=== PATIENT | female | born 1930 ===

== ENCOUNTER 2018-05-12 13:04 | Outpatient (CLI) | payer OTHER | END 2018-05-12 13:05 | disposition home or self-care (01) | LOC: C.MAMMO 13:05 ==

== ENCOUNTER 2018-08-09 09:58 | Outpatient (CLI) | payer OTHER | END 2018-08-09 09:59 | disposition home or self-care (01) | LOC: C.SPRAD 09:58 ==

== ENCOUNTER 2018-09-12 15:30 | Observation (INO) | payer MEDICAID, OTHER ==
--- NOTE | 2018-09-12 15:59 | C.PDOC ---
History Of Present Illness 88 year old female with PMHx of CHF, hypertension, anemia, and vulvar cancer sent to ED by for evaluation of elevated potassium at 6.9 as well as BUN and creatine of 53 and 1.5, respectively. Patient denies any complaints. She notes she is making good urine. She denies chest pain, SOB, abdominal pain, urinary complaints, vaginal discharge, fall, or trauma. Time Seen by Provider: 09/12/18 15:58 Chief Complaint (Nursing): Abnormal Labs History Per: Patient History/Exam Limitations: no limitations Onset/Duration Of Symptoms: Hrs Current Symptoms Are (Timing): Still Present Past Medical History Reviewed: Historical Data, Nursing Documentation, Vital Signs Vital Signs: Last Vital Signs Temp 98.6 F 09/12/18 15:33 Pulse 80 09/12/18 15:33 Resp 18 09/12/18 15:33 BP 146/67 09/12/18 15:33 Pulse Ox 99 09/12/18 15:33 Primary Care Provider: Dniora Jennings - Medical History PMH: Anemia, CHF, HTN Other PMH: Vulvar cancer Surgical History: No Surg Hx Family History: States: Unknown Family Hx - Social History Hx Alcohol Use: No Hx Substance Use: No - Immunization History Hx Tetanus Toxoid Vaccination: No Hx Influenza Vaccination: No Hx Pneumococcal Vaccination: No Review Of Systems Constitutional: Negative for: Fever, Chills, Sweats, Weakness, Malaise Eyes: Negative for: Pain, Vision Change, Conjunctivae Inflammation ENT: Negative for: Ear Pain, Ear Discharge, Nose Pain, Nose Congestion, Mouth Pain, Mouth Swelling Cardiovascular: Negative for: Chest Pain Respiratory: Negative for: Cough, Shortness of Breath, Sputum Gastrointestinal: Negative for: Nausea, Vomiting, Abdominal Pain, Constipation, Melena, Hematochezia, Hematemesis Genitourinary: Negative for: Dysuria, Frequency, Hematuria, Vaginal Discharge Neurological: Negative for: Weakness, Numbness Physical Exam - Physical Exam Appears: Well, Non-toxic, No Acute Distress Skin: Normal Color, Warm, Dry Head: Atraumatic, Normacephalic Eye(s): bilateral: Normal Inspection, PERRL, EOMI Ear(s): Bilateral: Normal Nose: Normal Oral Mucosa: Moist Throat: Normal, No Erythema, No Exudate, No Drooling Neck: Normal ROM, Trachea Midline, No Midline Cervical Tenderness, Supple, No Other (meningeal signs- negative kernig's and brudzinskis) Chest: Symmetrical, No Deformity, No Tenderness Cardiovascular: Rhythm Regular, No Friction Rub Respiratory: No Rales, No Rhonchi, No Wheezing Gastrointestinal/Abdominal: Normal Exam, Soft, No Tenderness, No Distention Back: Normal Inspection, No CVA Tenderness Extremity: Capillary Refill (<2 seconds), No Swelling Extremity: Bilateral: Atraumatic, Normal Color And Temperature, Normal ROM Pulses: Left Dorsalis Pedis: Normal, Right Dorsalis Pedis: Normal Neurological/Psych: Oriented x3, Normal Speech, Normal Cognition Gait: Steady ED Course And Treatment - Laboratory Results Result Diagrams: 09/13/18 06:32 09/13/18 06:32 O2 Sat by Pulse Oximetry: 99 (in RA) Pulse Ox Interpretation: Normal Medical Decision Making Medical Decision Making: Impression: 88 year old female with PMHx of CHF, hypertension, anemia, and vulvar cancer sent to ED by for evaluation of elevated potassium at 6.9 as well as BUN and creatine of 53 and 1.5, respectively. Initial Plan: VBG EKG CMP Magnesium CBC UA Albuterol INH Dextrose IV Insulin IVP EKG:NSR 70 bpm. No STEMI. 1734 K5.8, cocktail ordered. NO EKG Changes for hyperkalemia pt in nad, denies complaints appreciate consult w/ DR. Hennessy: to admit to her service Disposition - Disposition Disposition: HOSPITALIZED Disposition Time: 17:35 Condition: STABLE - Clinical Impression Clinical Impression: Hyperkalemia - Scribe Statement The provider has reviewed the documentation as recorded by the Scribe (Giuliana Montez) All medical record entries made by the Scribe were at my direction and personally dictated by me. I have reviewed the chart and agree that the record accurately reflects my personal performance of the history, physical exam, medical decision making, and the department course for this patient. I have also personally directed, reviewed, and agree with the discharge instructions and disposition.
[2018-09-12 16:30] LABS: BASO % 0.9 % (0.0-2.0); EOS # 0.1 K/uL (0.0-0.7); EOS % 2.1 % (0.0-4.0); HEMOGLOBIN 9.9 g/dL (11.0-16.0); LYMPH # 0.7 K/uL (1.0-4.3); LYMPH % 14.9 % (20.0-40.0); MEAN CELL VOLUME 88.1 fL (81.0-99.0); MEAN CORPUSCULAR HEMOGLOBIN 29.7 pg (27.0-31.0); MEAN CORPUSCULAR HGB CONC 33.7 g/dL (33.0-37.0); MEAN PLATELET VOLUME 8.1 fL (7.2-11.7); MONO # 0.3 K/uL (0.0-0.8); MONO % 7.1 % (0.0-10.0); NEUT # 3.4 K/uL (1.8-7.0); NRBC % 0.1 % (0.0-2.0); RBC 3.34 Mil/uL (3.80-5.20); RED CELL DISTRIBUTION WIDTH 13.1 % (11.5-14.5); WHITE BLOOD COUNT 4.5 K/uL (4.8-10.8)
[2018-09-12 16:36] LABS: VENOUS BLOOD GAS BASE EXCESS -4.5 mmol/L (0.0-2.0); VENOUS BLOOD GAS PCO2 40 mmHg (40-60); VENOUS BLOOD GAS PO2 24 mm/Hg (30-55); VENOUS BLOOD PH 7.33 (7.32-7.43)
[2018-09-12 16:45] LABS: ALB/GLOB RATIO 1.6 (1.0-2.1); ALBUMIN 4.1 g/dL (3.5-5.0); CALCIUM 9.5 mg/dl (8.6-10.4)
[2018-09-12] MEDS ORDERED: Dextrose 50% SYRINGE Inj (50 ml) IV STA (16:54)
[2018-09-12] MEDS ORDERED: (Novolin R) Insulin Human Regular 100 units/ml vial IVP ONE (16:58)
[2018-09-12] MEDS ORDERED: Albuterol 0.083% Inhal Sol (2.5 mg/3 mL) UD INH STA (17:00)
[2018-09-12] MEDS ORDERED: Dextrose 50% SYRINGE Inj (50 ml) ONE (17:37)
[2018-09-12] MEDS ORDERED: (Novolin R) Insulin Human Regular 100 units/ml vial ONE (17:37)
[2018-09-12] MEDS ORDERED: Albuterol 0.083% Inhal Sol (2.5 mg/3 mL) UD ONE (17:47)
[2018-09-12 18:22] LABS: SQUAMOUS EPITHIAL 7 /hpf (0-5); URINE BACTERIA MOD (<OCC); URINE BILIRUBIN NEGATIVE (NEGATIVE); URINE BLOOD NEGATIVE (NEGATIVE); URINE CLARITY Hazy (Clear); URINE COLOR Yellow (YELLOW); URINE GLUCOSE (UA) NORMAL (Normal); URINE LEUKOCYTE ESTERASE NEG Leu/uL (Negative); URINE PROTEIN NEGATIVE (NEGATIVE); URINE UROBILINOGEN NORMAL mg/dL (0.2-1.0)
--- NOTE | 2018-09-12 18:59 | CP.PCM.HP ---
History of Present Illness - History of Present Illness History of Present Illness: Patient is an 88 year old female with a past medical history of HTN, CHF, vuvlar cancer (treated), lymphangitis, osteoporosis, who was sent to the hospital by PMD for hyperkalemia. The patient went for bloodwork at [facility] at [facility] this morning and was found to have a potassium of 6.6. She was called and told to come to the ER. She currently has no complaints and feels well. She has had elevated potassium in the past, was taking spironolactone at that time and was told to discontinue it (06/2018). She has been avoiding foods high in potassium as well. She currently denies chest pain, palpitations, dyspnea, cough, abdominal pain, nausea, vomiting, dizziness, syncope/falls, dysuria, hematuria, headaches. PMD: Dr. Jennings PMHx: HTN, CHF, vuvlar cancer (treated), lymphangitis, osteoporosis SurgHx: Hysterectomy (uterine prolapse in ); left wrist pain FamHx: Father-CKD, Mother- [place] SocHx: former smoker (quit 2015, [id number]); denies alcohol and drug use; lives with daughter, Iris Allergies: NKDA Medications: Alendronate 70mg Q7days, Calcium, Lisinopril 5mg PO daily, Lasix 20mg PO Q2days, Pentoxifylline 400mg PO BID Present on Admission - Present on Admission Any Indicators Present on Admission: No Review of Systems - Constitutional Constitutional: absent: Fever, Frequent Falls, Headache, Weakness - EENT Eyes: absent: Change in Vision Ears: absent: Dizziness - Cardiovascular Cardiovascular: Leg Edema (chronic lymphedema of left LE). absent: Chest Pain, Dyspnea, Irregular Heart Rhythm, Lightheadedness, Palpitations, Rapid Heart Rate - Respiratory Respiratory: absent: Cough, Dyspnea - Gastrointestinal Gastrointestinal: absent: Abdominal Pain, Diarrhea, Nausea, Vomiting - Genitourinary Genitourinary: Nocturia. absent: Change in Urinary Stream, Difficulty Urinating, Dysuria, Hematuria, Urinary Hesitance - Neurological Neurological: absent: Disequilibrium, Dizziness, Frequent Falls, Headaches, Weakness - Endocrine Endocrine: absent: Palpitations Past Patient History - Infectious Disease Hx of Infectious Diseases: None - Past Social History Smoking Status: Former Smoker - CARDIAC Hx Congestive Heart Failure: Yes Hx Hypertension: Yes - HEMATOLOGICAL/ONCOLOGICAL Hx Anemia: Yes - GENITOURINARY/GYNECOLOGICAL Hx Genitourinary Disorders: Yes Other/Comment: UTERINE PROLAPSE - PSYCHIATRIC Hx Substance Use: No - SURGICAL HISTORY Hx Surgeries: Yes Other/Comment: VULVA CARCINOMA REMOVAL. UTERINE MESH - ANESTHESIA Hx Anesthesia: Yes Hx Anesthesia Reactions: No Meds Allergies/Adverse Reactions: Allergies Allergy/AdvReac Type Severity Reaction Status Date / Time aloe vera Allergy Verified 03/17/16 10:35 Physical Exam - Constitutional Appears: No Acute Distress - Head Exam Head Exam: ATRAUMATIC, NORMAL INSPECTION - Eye Exam Eye Exam: EOMI, Normal appearance - ENT Exam ENT Exam: Mucous Membranes Dry - Respiratory Exam Respiratory Exam: Clear to Auscultation Bilateral, NORMAL BREATHING PATTERN. absent: Rales, Rhonchi, Wheezes, Respiratory Distress - Cardiovascular Exam Cardiovascular Exam: REGULAR RHYTHM, +S1, +S2, Systolic Murmur - GI/Abdominal Exam GI & Abdominal Exam: Normal Bowel Sounds, Soft. absent: Distended, Firm, Tenderness - Extremities Exam Extremities exam: Positive for: pedal pulses present. Negative for: normal inspection (Left LE-chronic lympedema), tenderness - Neurological Exam Neurological exam: Alert, Oriented x3 - Psychiatric Exam Psychiatric exam: Normal Affect, Normal Mood - Skin Skin Exam: Dry, Intact, Normal Color, Warm Results - Vital Signs Recent Vital Signs: Last Vital Signs Temp 98.6 F 09/12/18 15:33 Pulse 85 09/12/18 18:37 Resp 21 09/12/18 18:37 BP 119/50 L 09/12/18 18:37 Pulse Ox 100 09/12/18 18:37 - Labs Result Diagrams: 09/12/18 16:26 09/12/18 16:26 Labs: Laboratory Results - last 24 hr 09/12/18 09/12/18 09/12/18 16:26 16:26 16:31 WBC 4.5 L RBC 3.34 L Hgb 9.9 L Hct 29.5 L MCV 88.1 MCH 29.7 MCHC 33.7 RDW 13.1 Plt Count 175 MPV 8.1 Neut % (Auto) 75.0 Lymph % (Auto) 14.9 L [place] % (Auto) 7.1 Eos % (Auto) 2.1 Baso % (Auto) 0.9 Neut # (Auto) 3.4 Lymph # (Auto) 0.7 L [place] # (Auto) 0.3 Eos # (Auto) 0.1 Baso # (Auto) 0.0 pO2 24 L VBG pH 7.33 VBG pCO2 40 VBG HCO3 19.8 VBG Total CO2 22.3 VBG O2 Sat (Calc) 46.8 VBG Base Excess -4.5 L VBG Potassium 5.5 H Glucose 83 Lactate 1.5 Sodium 140 140.0 Potassium 5.8 H Chloride 109 H 111.0 H Carbon Dioxide 20 L Anion Gap 16 BUN 51 H Creatinine 1.6 H Est GFR ( Amer) 37 Est GFR (Non-Af Amer) 30 Random Glucose 82 Calcium 9.5 Magnesium 2.2 Total Bilirubin 0.2 AST 18 ALT 16 Alkaline Phosphatase 45 Total Protein 6.7 Albumin 4.1 Globulin 2.6 Albumin/Globulin Ratio 1.6 Venous Blood Potassium 5.5 H Urine Color Urine Clarity Urine pH Ur Specific [place] Urine Protein Urine Glucose (UA) Urine Ketones Urine Blood Urine Nitrate Urine Bilirubin Urine Urobilinogen Ur Leukocyte Esterase Urine WBC (Auto) Urine RBC (Auto) Ur Squamous Epith Cells Urine Bacteria 09/12/18 18:04 WBC RBC Hgb Hct MCV MCH MCHC RDW Plt Count MPV Neut % (Auto) Lymph % (Auto) [place] % (Auto) Eos % (Auto) Baso % (Auto) Neut # (Auto) Lymph # (Auto) [place] # (Auto) Eos # (Auto) Baso # (Auto) pO2 VBG pH VBG pCO2 VBG HCO3 VBG Total CO2 VBG O2 Sat (Calc) VBG Base Excess VBG Potassium Glucose Lactate Sodium Potassium Chloride Carbon Dioxide Anion Gap BUN Creatinine Est GFR ( Amer) Est GFR (Non-Af Amer) Random Glucose Calcium Magnesium Total Bilirubin AST ALT Alkaline Phosphatase Total Protein Albumin Globulin Albumin/Globulin Ratio Venous Blood Potassium Urine Color Yellow Urine Clarity Hazy Urine pH 5.0 Ur Specific [place] 1.012 Urine Protein Negative Urine Glucose (UA) Normal Urine Ketones Negative Urine Blood Negative Urine Nitrate Positive H Urine Bilirubin Negative Urine Urobilinogen Normal Ur Leukocyte Esterase Neg Urine WBC (Auto) 4 Urine RBC (Auto) < 1 Ur Squamous Epith Cells 7 H Urine Bacteria Mod H Assessment & Plan - Assessment and Plan (Free Text) Plan: Patient is an 88 year old female with a past medical history of HTN, CHF, vuvlar cancer (treated), lymphangitis, osteoporosis, who was sent to the hospital by PMD for hyperkalemia. Hyperkalemia - Patient currently asymptomatic - At admission, K+ 5.8; patient had blood drawn in [facility] ([facility]) this morning and K+ was 6.6) - In the ER: was given Duonebs, 8 units of insulin and D50. - EKG: NSR@@70bpm; LBBB - Repeat BMP@9pm: f/u - Discontinued home medications Lisinopril 5mg PO daily and Lasix 20mg Q2days - Nephrology, Dr. Gamble, consulted; help appreciated Acute on Chronic Kidney Disease - At admission, BUN/Cr: 51/1.6; GFR30; Cr in 07/2018 was 1.1, but has been previously elevated over the past yr. - Discontinued home medications Lisinopril 5mg PO daily and Lasix 20mg Q2days - Nephrology consulted, Dr. Gamble; help appreciated - 24hr urine collection order: f/u - Continue to monitor History of Chronic Congestive Heart Failure - Echo (03/09/18): EF 50-55%, LVH, grade-I abnormal relaxation pattern; severely dilated LA, possible pfo; mild AR, mild MR, mild-mod TR, no pulm HTN, no pericardial effusion - Was previously taking spironolactone- discontinued in June 2018 due to hyperkalemia - Home medications: Lasix 20mg PO Q2days, Lisinopril 5mg PO daily History of Hypertension - Home medications Lisinopril 5mg PO daily and Lasix 20mg PO Q2days discontinued - Currently normotensive. Will continue to monitor. Can consider low dose Norvasc if elevated blood pressure. History of PAD - Continue home medication: Pentoxifylline 400mg PO BID Prophylaxis - DVT: no SCDs due to LE lymphedema - GI: not indicated at this time Case discussed with Dr. Misbah Dominique, PGY2
[2018-09-12] MEDS: Sodium Chloride 0.9% 1,000 ML IV SCH (23:10)
[2018-09-12 23:18] LABS: CALCIUM 9.5 mg/dl (8.6-10.4)
[2018-09-13 02:55] VITALS: RESP 20
[2018-09-13 06:52] LABS: BASO % 0.6 % (0.0-2.0); EOS # 0.1 K/uL (0.0-0.7); HEMOGLOBIN 9.9 g/dL (11.0-16.0); LYMPH # 0.6 K/uL (1.0-4.3); LYMPH % 13.8 % (20.0-40.0); MEAN CELL VOLUME 88.6 fL (81.0-99.0); MEAN CORPUSCULAR HEMOGLOBIN 29.9 pg (27.0-31.0); MEAN CORPUSCULAR HGB CONC 33.7 g/dL (33.0-37.0); MEAN PLATELET VOLUME 8.8 fL (7.2-11.7); MONO # 0.3 K/uL (0.0-0.8); MONO % 6.5 % (0.0-10.0); NEUT # 3.1 K/uL (1.8-7.0); NEUT % 76.1 % (50.0-75.0); RBC 3.31 Mil/uL (3.80-5.20); RED CELL DISTRIBUTION WIDTH 13.2 % (11.5-14.5); WHITE BLOOD COUNT 4.1 K/uL (4.8-10.8)
[2018-09-13 06:53] LABS: ALB/GLOB RATIO 1.5 (1.0-2.1); ALBUMIN 3.9 g/dL (3.5-5.0); CALCIUM 9.5 mg/dl (8.6-10.4)
--- NOTE | 2018-09-13 07:40 | CP.PCM.CON ---
History of Present Illness - History of Present Illness History of Present Illness: 88 year old female with a past medical history of HTN, CHF, vuvlar cancer (treated), lymphangitis, osteoporosis, who was sent to the hospital by PMD for hyperkalemia. The patient went for bloodwork at [facility] at [facility] this morning and was found to have a potassium of 6.6. She was called and told to come to the ER. She currently has no complaints and feels well. She has had elevated potassium in the past, was taking spironolactone at that time and was told to discontinue it (06/2018). She has been avoiding foods high in potassium as well. She currently denies chest pain, palpitations, dyspnea, cough, abdominal pain, nausea, vomiting, dizziness, syncope/falls, dysuria, hematuria, headaches. Patient seen in room with daughter at bedside. No history of renal disease reported. NO history of bladder dysfunction, henaturia, proteinuria, nephrolithiasis, or use of nsaids. PMHx: HTN, CHF, vuvlar cancer (treated), lymphangitis, osteoporosis SurgHx: Hysterectomy (uterine prolapse in ); left wrist pain FamHx: Father-CKD, Mother- [place] SocHx: former smoker (quit 2015, [id number]); denies alcohol and drug use; lives with daughterIris Allergies: NKDA Medications: Alendronate 70mg Q7days, Calcium, Lisinopril 5mg PO daily, Lasix 20mg PO Q2days, Pentoxifylline 400mg PO BID Review of Systems - Constitutional Constitutional: absent: Chills, Fatigue, Fever - EENT Eyes: absent: Blurred Vision, Change in Vision Ears: absent: Ear Discharge, Disequilibrium, Dizziness Nose/Mouth/Throat: absent: Nasal Congestion, Nasal Trauma, Dry Mouth - Cardiovascular Cardiovascular: absent: Chest Pain, Dyspnea, Leg Edema, Syncope - Respiratory Respiratory: absent: Cough, Wheezing, Chest Congestion - Gastrointestinal Gastrointestinal: absent: Constipation, Cramping, Diarrhea - Genitourinary Genitourinary: absent: Hematuria, Pyuria, Nocturia, Urinary Frequency - Musculoskeletal Musculoskeletal: absent: Joint Swelling, Muscle Weakness, Myalgias, Stiffness - Integumentary Integumentary: absent: Pruritus, Rash, Skin Pain - Neurological Neurological: absent: Confusion, Frequent Falls, Tingling, Tremor - Psychiatric Psychiatric: absent: Confusion, Depression - Endocrine Endocrine: absent: Cold Intolorance, Heat Intolorance, Polyphagia - Hematologic/Lymphatic Hematologic: absent: Easy Bleeding, Easy Bruising Past Patient History - Infectious Disease Hx of Infectious Diseases: None - Past Social History Smoking Status: Former Smoker - CARDIAC Hx Congestive Heart Failure: Yes Hx Hypertension: Yes - HEMATOLOGICAL/ONCOLOGICAL Hx Anemia: Yes - GENITOURINARY/GYNECOLOGICAL Hx Genitourinary Disorders: Yes Other/Comment: UTERINE PROLAPSE - PSYCHIATRIC Hx Substance Use: No - SURGICAL HISTORY Hx Surgeries: Yes Other/Comment: VULVA CARCINOMA REMOVAL. UTERINE MESH - ANESTHESIA Hx Anesthesia: Yes Hx Anesthesia Reactions: No Meds Allergies/Adverse Reactions: Allergies Allergy/AdvReac Type Severity Reaction Status Date / Time aloe vera Allergy Verified 03/17/16 10:35 - Medications Medications: Current Medications Aspirin (Aspirin Chewable) 81 mg PO DAILY [facility] Enoxaparin Sodium (Lovenox) 30 mg SC DAILY [facility] Sodium Chloride (Sodium Chloride 0.9%) 1,000 mls @ 50 mls/hr IV .Q20H [facility] Last Admin: 09/12/18 23:10 Dose: 50 mls/hr Pentoxifylline (Pentoxil) 400 mg PO Q12 [facility] Last Admin: 09/12/18 22:45 Dose: 400 mg Physical Exam - Constitutional Appears: Well, Non-toxic Additional comments: elderly - Head Exam Head Exam: ATRAUMATIC, NORMAL INSPECTION - Eye Exam Eye Exam: EOMI, Normal appearance - ENT Exam ENT Exam: Mucous Membranes Moist, Normal Oropharynx - Neck Exam Neck exam: Negative for: Lymphadenopathy, Thyromegaly - Respiratory Exam Respiratory Exam: Clear to Auscultation Bilateral. absent: Rales, Rhonchi - Cardiovascular Exam Cardiovascular Exam: REGULAR RHYTHM, +S1, +S2, Systolic Murmur - GI/Abdominal Exam GI & Abdominal Exam: Normal Bowel Sounds, Soft - Extremities Exam Extremities exam: Negative for: joint swelling, pedal edema - Neurological Exam Neurological exam: Alert, Oriented x3 - Psychiatric Exam Psychiatric exam: Normal Affect, Normal Mood - Skin Skin Exam: Dry, Intact Results - Vital Signs Recent Vital Signs: Last Vital Signs Temp 97.7 F 09/13/18 06:00 Pulse 69 09/13/18 06:00 Resp 20 09/13/18 06:00 BP 163/69 H 09/13/18 06:00 Pulse Ox 98 09/13/18 06:00 - Labs Result Diagrams: 09/13/18 06:32 09/13/18 06:32 Labs: Laboratory Results - last 24 hr 09/12/18 09/12/18 09/12/18 16:26 16:26 16:31 WBC 4.5 L RBC 3.34 L Hgb 9.9 L Hct 29.5 L MCV 88.1 MCH 29.7 MCHC 33.7 RDW 13.1 Plt Count 175 MPV 8.1 Neut % (Auto) 75.0 Lymph % (Auto) 14.9 L [place] % (Auto) 7.1 Eos % (Auto) 2.1 Baso % (Auto) 0.9 Neut # (Auto) 3.4 Lymph # (Auto) 0.7 L [place] # (Auto) 0.3 Eos # (Auto) 0.1 Baso # (Auto) 0.0 pO2 24 L VBG pH 7.33 VBG pCO2 40 VBG HCO3 19.8 VBG Total CO2 22.3 VBG O2 Sat (Calc) 46.8 VBG Base Excess -4.5 L VBG Potassium 5.5 H Glucose 83 Lactate 1.5 Sodium 140 140.0 Potassium 5.8 H Chloride 109 H 111.0 H Carbon Dioxide 20 L Anion Gap 16 BUN 51 H Creatinine 1.6 H Est GFR ( Amer) 37 Est GFR (Non-Af Amer) 30 POC Glucose (mg/dL) Random Glucose 82 Calcium 9.5 Magnesium 2.2 Total Bilirubin 0.2 AST 18 ALT 16 Alkaline Phosphatase 45 Total Protein 6.7 Albumin 4.1 Globulin 2.6 Albumin/Globulin Ratio 1.6 Free T4 TSH 3rd Generation Venous Blood Potassium 5.5 H Urine Color Urine Clarity Urine pH Ur Specific [place] Urine Protein Urine Glucose (UA) Urine Ketones Urine Blood Urine Nitrate Urine Bilirubin Urine Urobilinogen Ur Leukocyte Esterase Urine WBC (Auto) Urine RBC (Auto) Ur Squamous Epith Cells Urine Bacteria 09/12/18 09/12/18 09/12/18 18:04 23:01 23:22 WBC RBC Hgb Hct MCV MCH MCHC RDW Plt Count MPV Neut % (Auto) Lymph % (Auto) [place] % (Auto) Eos % (Auto) Baso % (Auto) Neut # (Auto) Lymph # (Auto) [place] # (Auto) Eos # (Auto) Baso # (Auto) pO2 VBG pH VBG pCO2 VBG HCO3 VBG Total CO2 VBG O2 Sat (Calc) VBG Base Excess VBG Potassium Glucose Lactate Sodium 141 Potassium 5.4 H Chloride 111 H Carbon Dioxide 21 L Anion Gap 13 BUN 45 H Creatinine 1.3 H Est GFR ( Amer) 47 Est GFR (Non-Af Amer) 39 POC Glucose (mg/dL) 154 H Random Glucose 154 H D Calcium 9.5 Magnesium Total Bilirubin AST ALT Alkaline Phosphatase Total Protein Albumin Globulin Albumin/Globulin Ratio Free T4 TSH 3rd Generation Venous Blood Potassium Urine Color Yellow Urine Clarity Hazy Urine pH 5.0 Ur Specific [place] 1.012 Urine Protein Negative Urine Glucose (UA) Normal Urine Ketones Negative Urine Blood Negative Urine Nitrate Positive H Urine Bilirubin Negative Urine Urobilinogen Normal Ur Leukocyte Esterase Neg Urine WBC (Auto) 4 Urine RBC (Auto) < 1 Ur Squamous Epith Cells 7 H Urine Bacteria Mod H 09/13/18 09/13/18 09/13/18 06:32 06:32 06:32 WBC 4.1 L RBC 3.31 L Hgb 9.9 L Hct 29.3 L MCV 88.6 MCH 29.9 MCHC 33.7 RDW 13.2 Plt Count 173 MPV 8.8 Neut % (Auto) 76.1 H Lymph % (Auto) 13.8 L [place] % (Auto) 6.5 Eos % (Auto) 3.0 Baso % (Auto) 0.6 Neut # (Auto) 3.1 Lymph # (Auto) 0.6 L [place] # (Auto) 0.3 Eos # (Auto) 0.1 Baso # (Auto) 0.0 pO2 VBG pH VBG pCO2 VBG HCO3 VBG Total CO2 VBG O2 Sat (Calc) VBG Base Excess VBG Potassium Glucose Lactate Sodium 142 Potassium 5.3 H Chloride 112 H Carbon Dioxide 19 L Anion Gap 15 BUN 40 H Creatinine 1.1 Est GFR ( Amer) 57 Est GFR (Non-Af Amer) 47 POC Glucose (mg/dL) Random Glucose 78 D Calcium 9.5 Magnesium Total Bilirubin 0.3 AST 19 ALT 16 Alkaline Phosphatase 46 Total Protein 6.5 Albumin 3.9 Globulin 2.6 Albumin/Globulin Ratio 1.5 Free T4 0.96 TSH 3rd Generation 0.36 L Venous Blood Potassium Urine Color Urine Clarity Urine pH Ur Specific [place] Urine Protein Urine Glucose (UA) Urine Ketones Urine Blood Urine Nitrate Urine Bilirubin Urine Urobilinogen Ur Leukocyte Esterase Urine WBC (Auto) Urine RBC (Auto) Ur Squamous Epith Cells Urine Bacteria Assessment & Plan (1) Acute kidney injury Status: Acute (2) Chronic kidney disease Status: Acute (3) Hypertension Status: Acute (4) Hyperkalemia Status: Acute - Assessment and Plan (Free Text) Assessment: Acute kidney injury on chronic kidney disease due to volume depletion and dysautoregulation from THOMAS I use Agree with holding THOMAS I and aldactone for hyperkalemia IV isotonic saline for volume replacement hyperkalemia responding well to treatment Renal function improving Obtain urine for protein and creatinine Serial chemistry Renal ultrasound
--- NOTE | 2018-09-13 08:44 | US ---
Date of service: 09/13/2018 PROCEDURE: Ultrasound of the Kidneys HISTORY: acute on chronic renal insuffiency COMPARISON: None available. TECHNIQUE: Sonogram of the kidneys. FINDINGS: RIGHT KIDNEY: Measures: 9.7 cm. Diffusely increased renal cortical echogenicity. No calculus or hydronephrosis. Simple cyst mid right kidney, 1.9 x 1.9 x 2.5 cm. LEFT KIDNEY: Measures: 10.5 cm. Diffusely increased renal cortical echogenicity. No mass, calculus or hydronephrosis. OTHER FINDINGS: Please note that the patient voided before arrival in the ultrasound department. Postvoid residual in the urinary bladder is 377 cc. Ureteral jets could not be visualized. IMPRESSION: Bilaterally echogenic kidneys, diffusely, consistent with medical renal disease. Large postvoid residual in the urinary bladder. 2.5 cm simple right renal cortical cyst.
--- NOTE | 2018-09-13 09:41 | CP.PCM.DIS ---
Provider - Provider Date of Admission: 09/12/18 17:33 Attending physician: Aranza Hennessy MD Consults: 09/12/18 18:33 Nephrology Consult Routine Comment: Consulting Provider: Ronnie Gamble Consulting Physician: Ronnei Gamble Reason for Consult: hyperkalemia, acute on chronic renal 09/12/18 22:43 Inpatient [employer] Core Measures Referral Routine Comment: Physician Instructions: Reason For Exam: chronic chf 09/12/18 22:49 Nursing Referral for Palliative Care Routine Comment: Physician Instructions: Reason For Exam: creation of polst Time Spent in preparation of Discharge (in minutes): 45 Diagnosis - Discharge Diagnosis (1) CHF (congestive heart failure) Status: Chronic (2) Hypertension Status: Acute Hospital Course - Lab Results Lab Results: Most Recent Lab Values WBC 4.1 K/uL (4.8-10.8) L 09/13/18 06:32 RBC 3.31 Mil/uL (3.80-5.20) L 09/13/18 06:32 Hgb 9.9 g/dL (11.0-16.0) L 09/13/18 06:32 Hct 29.3 % (34.0-47.0) L 09/13/18 06:32 MCV 88.6 fL (81.0-99.0) 09/13/18 06:32 MCH 29.9 pg (27.0-31.0) 09/13/18 06:32 MCHC 33.7 g/dL (33.0-37.0) 09/13/18 06:32 RDW 13.2 % (11.5-14.5) 09/13/18 06:32 Plt Count 173 K/uL (130-400) 09/13/18 06:32 MPV 8.8 fL (7.2-11.7) 09/13/18 06:32 Neut % (Auto) 76.1 % (50.0-75.0) H 09/13/18 06:32 Lymph % (Auto) 13.8 % (20.0-40.0) L 09/13/18 06:32 [place] % (Auto) 6.5 % (0.0-10.0) 09/13/18 06:32 Eos % (Auto) 3.0 % (0.0-4.0) 09/13/18 06:32 Baso % (Auto) 0.6 % (0.0-2.0) 09/13/18 06:32 Neut # (Auto) 3.1 K/uL (1.8-7.0) 09/13/18 06:32 Lymph # (Auto) 0.6 K/uL (1.0-4.3) L 09/13/18 06:32 [place] # (Auto) 0.3 K/uL (0.0-0.8) 09/13/18 06:32 Eos # (Auto) 0.1 K/uL (0.0-0.7) 09/13/18 06:32 Baso # (Auto) 0.0 K/uL (0.0-0.2) 09/13/18 06:32 pO2 24 mm/Hg (30-55) L 09/12/18 16:31 VBG pH 7.33 (7.32-7.43) 09/12/18 16:31 VBG pCO2 40 mmHg (40-60) 09/12/18 16:31 VBG HCO3 19.8 mmol/L 09/12/18 16:31 VBG Total CO2 22.3 mmol/L (22-28) 09/12/18 16:31 VBG O2 Sat (Calc) 46.8 % (40-65) 09/12/18 16:31 VBG Base Excess -4.5 mmol/L (0.0-2.0) L 09/12/18 16:31 VBG Potassium 5.5 mmol/L (3.6-5.2) H 09/12/18 16:31 Sodium 140.0 mmol/l (132-148) 09/12/18 16:31 Chloride 111.0 mmol/L (98-107) H 09/12/18 16:31 Glucose 83 mg/dl (65-105) 09/12/18 16:31 Lactate 1.5 mmol/L (0.7-2.1) 09/12/18 16:31 Sodium 142 mmol/L (132-148) 09/13/18 06:32 Potassium 5.3 mmol/L (3.6-5.2) H 09/13/18 06:32 Chloride 112 mmol/L (98-107) H 09/13/18 06:32 Carbon Dioxide 19 mmol/L (22-30) L 09/13/18 06:32 Anion Gap 15 (10-20) 09/13/18 06:32 BUN 40 mg/dL (7-17) H 09/13/18 06:32 Creatinine 1.1 mg/dL (0.7-1.2) 09/13/18 06:32 Est GFR ( Amer) 57 09/13/18 06:32 Est GFR (Non-Af Amer) 47 09/13/18 06:32 POC Glucose (mg/dL) 154 mg/dL (65-110) H 09/12/18 23:22 Random Glucose 78 mg/dL (65-105) D 09/13/18 06:32 Calcium 9.5 mg/dl (8.6-10.4) 09/13/18 06:32 Magnesium 2.2 mg/dL (1.6-2.3) 09/12/18 16:26 Total Bilirubin 0.3 mg/dL (0.2-1.3) 09/13/18 06:32 AST 19 U/L (14-36) 09/13/18 06:32 ALT 16 U/L (9-52) 09/13/18 06:32 Alkaline Phosphatase 46 U/L (38-126) 09/13/18 06:32 Total Protein 6.5 g/dL (6.3-8.3) 09/13/18 06:32 Albumin 3.9 g/dL (3.5-5.0) 09/13/18 06:32 Globulin 2.6 gm/dL (2.2-3.9) 09/13/18 06:32 Albumin/Globulin Ratio 1.5 (1.0-2.1) 09/13/18 06:32 Free T4 0.96 ng/dL (0.78-2.19) 09/13/18 06:32 TSH 3rd Generation 0.36 mIU/L (0.46-4.68) L 09/13/18 06:32 Venous Blood Potassium 5.5 mmol/L (3.6-5.2) H 09/12/18 16:31 Urine Color Yellow (YELLOW) 09/12/18 18:04 Urine Clarity Hazy (Clear) 09/12/18 18:04 Urine pH 5.0 (5.0-8.0) 09/12/18 18:04 Ur Specific [place] 1.012 (1.003-1.030) 09/12/18 18:04 Urine Protein Negative mg/dL (NEGATIVE) 09/12/18 18:04 Urine Glucose (UA) Normal mg/dL (Normal) 09/12/18 18:04 Urine Ketones Negative mg/dL (NEGATIVE) 09/12/18 18:04 Urine Blood Negative (NEGATIVE) 09/12/18 18:04 Urine Nitrate Positive (NEGATIVE) H 09/12/18 18:04 Urine Bilirubin Negative (NEGATIVE) 09/12/18 18:04 Urine Urobilinogen Normal mg/dL (0.2-1.0) 09/12/18 18:04 Ur Leukocyte Esterase Neg Pooja/uL (Negative) 09/12/18 18:04 Urine WBC (Auto) 4 /hpf (0-5) 09/12/18 18:04 Urine RBC (Auto) < 1 /hpf (0-3) 09/12/18 18:04 Ur Squamous Epith Cells 7 /hpf (0-5) H 09/12/18 18:04 Urine Bacteria Mod (<OCC) H 09/12/18 18:04 - Hospital Course Hospital Course: Patient is an 88 year old female with a past medical history of HTN, CHF, vuvlar cancer (treated), lymphangitis, osteoporosis, who was sent to the hospital by PMD for hyperkalemia. The patient went for bloodwork at [facility] at [facility] this morning and was found to have a potassium of 6.6. She was c alled and told to come to the ER. She currently has no complaints and feels well. She has had elevated potassium in the past, was taking spironolactone at that time and was told to discontinue it (06/2018). She has been avoiding foods high in potassium as well. She currently denies chest pain, palpitations, dyspnea, cough, abdominal pain, nausea, vomiting, dizziness, syncope/falls, dysuria, hematuria, headaches. PMD: Dr. Jennings PMHx: HTN, CHF, vuvlar cancer (treated), lymphangitis, osteoporosis SurgHx: Hysterectomy (uterine prolapse in ); left wrist pain FamHx: Father-CKD, Mother- PR SocHx: former smoker (quit 2015, [id number]); denies alcohol and drug use; lives with daughterIris Allergies: NKDA Medications: Alendronate 70mg Q7days, Calcium, Lisinopril 5mg PO daily, Lasix 20mg PO Q2days, Pentoxifylline 400mg PO BID Pt was sent in by [facility] for K >6. After gentle IVF and holding THOMAS inh and sprionolactone, Pt's K came down to 5.3. Pt was seen by Dr Mavis Medley, agrees with plan going forward to hold lisinopril, aldactone and lasix at this time. Renal US consistent with CKD, also 2.5cm cyst noted on R side PLAN Hold home THOMAS, Lasix and Aldactone for now. May restart as out patient upon PMD request. Monitor BP accordingly. Continue with ASA 81 daily, Calcium supp, Pentoxifylline 400mg PO BID Please follow up with Dr Jennings within 7 days of discharge Discharge Exam - Head Exam Head Exam: ATRAUMATIC, NORMAL INSPECTION - Additional Findings Additional findings: - Constitutional Appears: No Acute Distress - Head Exam Head Exam: ATRAUMATIC, NORMAL INSPECTION - Eye Exam Eye Exam: EOMI, Normal appearance - ENT Exam ENT Exam: Mucous Membranes Dry - Respiratory Exam Respiratory Exam: Clear to Auscultation Bilateral, NORMAL BREATHING PATTERN. absent: Rales, Rhonchi, Wheezes, Respiratory Distress - Cardiovascular Exam Cardiovascular Exam: REGULAR RHYTHM, +S1, +S2, Systolic Murmur - GI/Abdominal Exam GI & Abdominal Exam: Normal Bowel Sounds, Soft. absent: Distended, Firm, Tenderness - Extremities Exam Extremities exam: Positive for: pedal pulses present. Negative for: normal inspection (Left LE-chronic lympedema), tenderness - Neurological Exam Neurological exam: Alert, Oriented x3 - Psychiatric Exam Psychiatric exam: Normal Affect, Normal Mood - Skin Skin Exam: Dry, Intact, Normal Color, Warm Discharge Plan - Discharge Medications Prescriptions: Aspirin [Aspirin Chewable] 81 mg PO DAILY #30 chew Calcium Carb/Vitamin D3/Vit K1 [Calcium + D Soft Chewable Tab] 1 each PO DAILY #30 tab.chew Pentoxifylline [Pentoxil] 400 mg PO Q12 #60 ter - Follow Up Plan Condition: STABLE Disposition: HOME/ ROUTINE Instructions: Hyperkalemia (DC), Hyperkalemia (GEN) Additional Instructions: PLAN Please take the medications as prescribed ASA 81 PO daily Calcium with D supplement Daily Pentoxifylline 400mg twice a day @ 8am and 8pm Hold home THOMAS, Lasix and Aldactone for now. May restart as out patient upon PMD request. Monitor BP accordingly. Continue with ASA 81 daily, Calcium supp, Pentoxifylline 400mg PO BID Please follow up with Dr Jennings within 7 days of discharge Referrals: Dinora Jennings MD [Staff Provider] -
[2018-09-13] MEDS: Enoxaparin 30 mg Syringe SC SCH (10:00)
[2018-09-13] MEDS: Sodium Chloride 0.9% 1,000 ML IV SCH (17:14)
[2018-09-14 07:52] VITALS: BP 142/70; TEMP 97.9; O2SAT 98
[2018-09-14 07:59] VITALS: PULSE 56
[2018-09-14 08:52] LABS: U CREAT 24HOUR URINE 612.4 {null, mg/24hr} (800-2800); URINE CREATININE 33.1 mg/dL
[2018-09-14] MEDS: Enoxaparin 30 mg Syringe SC SCH (10:20)
--- NOTE | 2018-09-15 03:28 | CARD ---
APPROVED REPORT Date of service: 09/12/2018 EKG Measurement Heart [id number] WI [id number] <Conclusion> Normal sinus rhythm with sinus arrhythmia Left bundle branch block Abnormal ECG
--- NOTE | 2018-09-15 10:29 | CARD ---
APPROVED REPORT Date of service: 09/13/2018 EXAM: Two-dimensional and M-mode echocardiogram with Doppler and color Doppler. Other Information Quality : GoodRhythm : INDICATION Peripheral Edema Murmur Congestive Heart Failure check ef RISK FACTORS Hypertension 2D DIMENSIONS IVSd1.2 (0.7-1.1cm)LVDd4.8 (3.9-5.9cm) PWd1.2 (0.7-1.1cm)LA Pdtogy26 (18-58mL) LVDs3.4 (2.5-4.0cm)FS (%) 29.3 % LVEF (%)56.1 (>50%)LVEF (Garcia's)55 % M-Mode DIMENSIONS Left Atrium (MM)2.73 (2.5-4.0cm)IVSd1.19 (0.7-1.1cm) Aortic Root3.41 (2.2-3.7cm)LVDd5.37 (4.0-5.6cm) Aortic Cusp Exc.1.81 (1.5-2.0cm)PWd0.84 (0.7-1.1cm) FS (%) 30 %LVDs3.76 (2.0-3.8cm) LVEF (%)57 (>50%) Aortic Valve AI P 1/2 [id number] Mitral Valve MV E Ckvwuaod36.8cm/sMV A Prerqcxv889.8cm/sE/A ratio0.6 TDI Lateral E' Peak V2.35cm/sMedial E' Peak V2.51cm/sE/Lateral E'30.6 E/Medial E'28.6 Tricuspid Valve TR Peak [id number]/sTR Peak Gr.[id number] LEFT VENTRICLE The left ventricle is normal size. There is mild concentric left ventricular hypertrophy. Left ventricle systolic function is normal. The Ejection Fraction is 55-60%. There is normal LV segmental wall motion. Tissue Doppler imaging reveals abnormal left ventricular diastolic dysfunction. RIGHT VENTRICLE The right ventricle is normal size. There is normal right ventricular wall thickness. The right ventricular systolic function is normal. ATRIA The left atrium size is normal. The right atrium size is normal. The interatrial septum is intact with no evidence for an atrial septal defect. AORTIC VALVE The aortic valve is normal in structure. There is moderate aortic regurgitation. There is no aortic valvular stenosis. MITRAL VALVE The mitral valve is moderately thickened but opens well. Mitral annular calcification is moderate. The posterior mitral valve leaflet appears thickened, but open well. There is no evidence of mitral valve prolapse. There is no mitral valve stenosis. Mitral regurgitation is mild. TRICUSPID VALVE The tricuspid valve is normal in structure. There is mild tricuspid regurgitation. Right ventricular systolic pressure is estimated at 30-40 mmHg. There is mild pulmonary hypertension. PULMONIC VALVE The pulmonic valve is not well visualized. There is mild pulmonic valvular regurgitation. GREAT VESSELS The aortic root is normal in size. PERICARDIAL EFFUSION There is no significant pericardial effusion. <Conclusion> Left ventricle systolic function is normal. The Ejection Fraction is 55-60%. Hypertensive heart disease. Diastolic dysfunction. There is moderate aortic regurgitation. Mitral regurgitation is mild. There is mild tricuspid regurgitation. There is mild pulmonary hypertension. There is mild pulmonic valvular regurgitation.
== END 2018-09-14 10:45 | disposition home or self-care (01) ==
LOC: C.ER 15:30 → C.9E 17:33 → C.6T 23:44
PROVIDERS: ADMIT Internal Medicine; ATTEND Internal Medicine
DX: E87.5 Hyperkalemia (principal); I13.0 Hypertensive heart and chronic kidney disease with heart failure and stage 1 through stage 4 chronic kidney disease, or unspecified chronic kidney disease; E86.9 Volume depletion, unspecified; I50.9 Heart failure, unspecified; N17.9 Acute kidney failure, unspecified; N18.9 Chronic kidney disease, unspecified; Z85.44 Personal history of malignant neoplasm of other female genital organs; Z87.891 Personal history of nicotine dependence
CPT/HCPCS: 36415; 76770; 76857; 80048; 80053; 81001; 82570; 82803; 82948; 83735; 84156; 84439; 84443; 85025; 93306; 96374; 97116; 97162; 97166; 97530; 99285; G0378; G8978; G8979; G8987; G8988; J1650; J7030